=== PATIENT | male | born 1985 | race African-American/Black ===

== ENCOUNTER 2021-11-24 12:57 | Emergency (ER) | payer SELFPAY ==
[~2021-11-24] VITALS: Ht 172.7 cm; Wt 69.0 kg
[2021-11-24 13:03] VITALS: BP 114/75
== END 2021-11-24 13:42 | disposition left against medical advice (07) ==
LOC: ER 12:57
DX: Z53.21 Procedure and treatment not carried out due to patient leaving prior to being seen by health care provider (principal)